=== PATIENT | female | born 1990 | race Caucasian/White ===

== ENCOUNTER 2020-03-19 06:47 | Outpatient (RCR) | payer OTHER, SELFPAY ==
[2020-03-19 07:06] LABS: COVID-19 Test Negative (Negative)
[2020-03-26 07:35] LABS: COVID-19 Test Negative (Negative)
[2020-04-01 09:31] LABS: COVID-19 Test Negative (Negative); IDNOW Serial# 55D5AD1C
[2020-04-26 13:54] LABS: SARS-COV-2 PCR UMBRL NOT DETECTED
[2020-05-05 09:42] LABS: SARS-COV-2 PCR UMBRL Not Detected
[2020-05-12 10:03] LABS: SARS-COV-2 PCR UMBRL Not Detected
[2020-05-16 12:17] LABS: SARS-COV-2 PCR UMBRL NEGATIVE
[2020-05-23 15:31] LABS: SARS-COV-2 PCR UMBRL NEGATIVE
== END 2020-03-19 06:48 | disposition home or self-care (01) ==
LOC: HO.EMPCOV 06:47
PROVIDERS: Visit Provider Internal Medicine
DX: Z20.828 Contact with and (suspected) exposure to other viral communicable diseases (principal)
CPT/HCPCS: 36415; 87635; C9803; U0003

== ENCOUNTER 2024-12-06 13:05 | Outpatient (AMB) | payer OTHER, SELFPAY ==
--- NOTE | 2024-12-06 13:07 | MHC.PC.OV ---
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 Intake Note: New patient visit Office Machinery Or Equipment Installer Required: No Allergies No Known Allergies Allergy (Verified 12/06/24 13:08) seasonal Allergy (Unknown, Uncoded 12/06/24 13:08) Unknown Medication List - Last Reconciled 12/06/24 by Lilian Renteria PA-C dextroamphetamine-amphetamine 20 mg ER (Adderall XR) 20 mg PO QAM dextroamphetamine-amphetamine 30 mg (Adderall) 30 mg PO DAILY lamotrigine (Lamictal) 300 mg PO DAILY Tobacco use date assessed: 12/06/24 Dental Screening Dental Screen Date: 12/06/24 Did you have a dental visit in the last 12 months?: No Did you have a dental problem in the last 6 months where you did not have access to dental care?: No Was dental information given to patient?: Patient has dentist 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 She tells me today that she has not seen a PCP in a very long time and does not have any acute concerns today but understands that she probably needs to get some blood work done. She says that she wants blood work done because she does feel tired but thinks that this also may just be related to her lifestyle and mental health. Pysch: anxiety, adhd and bipolar is stable with lamitical and adderall. She follows with psych at a private practice in [place]. She states the psychiatrist's name is Lupis. She follows with a therapist every other week. 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 1. Little interest or pleasure in doing things: not at all 2. Feeling down, depressed, or hopeless: not at all 3. Trouble falling or staying asleep, or sleeping too much: several days 4. Feeling tired or having little energy: not at all 5. Poor appetite or overeating: not at all 6. Feeling bad about yourself - or that you are a failure or have let yourself or your family down: not at all 7. Trouble concentrating on things, such as reading the newspaper or watching television: not at all 8. Moving or speaking so slowly that other people could have noticed. Or the opposite - being so fidgety or restless that you have been moving around a lot more than usual: several days 9. Thoughts that you would be better off or of hurting yourself in some way: not at all Total score: 2 Depression Screening Interpretation: Positive Depression Screening Follow-up: Existing condition, In treatment and Community Mental Health Worker F/U Depression Screening Done: Yes 75399 - PHQ-9 Billing: Yes Source: Developed by Drs. Rachid Jones, Soni Tapia, Manuel Wilkins and colleagues, with an educational herb from [employer]. Thrive Questionnaire Date Thrive assessed: 11/29/24 I am a: Patient What is your living situation today?: I have a steady place to live Within the past 12 months, did the food you bought not last and you didn't have the money to get more?: Never true Within the past 12 months, did you worry whether your food would run out before you got money to buy more?: Never true Do you have trouble paying for medicines?: No Do you have trouble getting transportation to medical appointments?: No Do you have trouble paying your heating and electricity bill?: No Do you have trouble taking care of your child, family member or friend?: No Do you have trouble with day-to-day activities such as bathing, preparing meals, shopping, managing finances, etc.?: No Are you currently unemployed and looking for a job?: No Are you interested in more education?: No Please select the resources that you would like help with: None Currently or been in a relationship where the following occur: No concerns reported THRIVE Score: 0 AUDIT C Alcohol Use Questionnaire (AUDIT-C) 1. How often do you have a drink containing alcohol?: 2-4 times a month 2. How many drinks containing alcohol do you have on a typical day when you are drinking?: 1 or 2 3. How often do you have six or more drinks on one occasion?: Less than monthly Total Score: 3 LAURA-7 AMB Questionnaire LAURA-7 Date LAURA - 7 assessed: 12/06/24 Feeling nervous, anxious, or on edge: 1 = Several days Not being able to stop or control worryin = Several days Worrying too much about different things: 1 = Several days Trouble relaxin = Several days Being so restless that it is hard to sit still: 1 = Several days Becoming easily annoyed or irritable: 1 = Several days Feeling afraid as if something awful might happen: 0 = Not at all Total LAURA-7 score (0-4 normal; 5-9 mild; 10-14 moderate; 15-21 severe): 6 Source: Developed by Drs. Rachid Jones, Soni Tapia, Manuel Wilkins and colleagues, with an educational herb from [employer]. LAURA-7 Assessment Billing LAURA-7 Assessment Tool: LAURA-7 Assessment 74073 Physical exam (Primary Care) Vital Signs: Last Vital Signs Temp 98.6 F 12/06/24 13:12 Pulse 96 12/06/24 13:12 Resp 14 12/06/24 13:12 BP 136/86 12/06/24 13:12 Pulse Ox 100 12/06/24 13:12 Oxygen Delivery Method Room Air 12/06/24 13:12 BMI result Body Mass Index 48.1 Tobacco/Smoking Status: Tobacco use Status Tobacco use date assessed 12/06/24 12/06/24 13:17 Patient Tobacco Use Status Never used Tobacco 12/06/24 13:23 e-Cigarette/Vaping Use Never Used 12/06/24 13:17 PHQ-9: PHQ-9 Score PHQ-9: Total score 2 12/06/24 13:32 Depression Screening Interpretation: Positive Depression Screening Follow-up: Existing condition, In treatment and Community Mental Health Worker F/U Thrive Assessment: Date of Thrive Assessment Date Thrive assessed 11/29/24 12/06/24 13:09 Currently or been in a relationship where the following occur: No concerns reported Const Orientation/consciousness: patient oriented x3 HENMT Ears: hearing grossly normal bilaterally Neck Thyroid: Thyroid normal Lymphatic: no lymphadenopathy noted Resp Auscultation: clear to auscultation bilaterally Cardio Rate: regular rate Rhythm: regular rhythm Heart sounds: S1 normal heart sound present and S2 normal heart sound present GI Inspection: Yes normal to inspection Palpation (GI): Soft to palpation and Other GI palpation findings present (nontender, no cva tenderness) Auscultation: normoactive bowel sounds Rectal Exam - Female: deferred Skin General skin exam: no rashes or lesions noted Neuro General: patient oriented x3, gait normal and no focal motor deficits Coding Level of Care Code New Pt Level 4 (77953) Complex EM visit Add On G2211 Diagnoses Bipolar disorder F31.9 ADHD (attention deficit hyperactivity disorder) F90.9 Generalized anxiety disorder F41.1 Fatigue R53.83 Additional Codes LAURA-7 Assessment Billing - LAURA-7 Assessment Tool: LAURA-7 Assessment 01219 ([id number]) PHQ-9 - 27163 - PHQ-9 Billing: Yes ([id number]) Assessment & Plan Assessment & Plan (1) Bipolar disorder: Code(s): F31.9 - Bipolar disorder, unspecified Category: Medical Plan: Stable. Following with Psychiatry (2) ADHD (attention deficit hyperactivity disorder): Code(s): F90.9 - Attention-deficit hyperactivity disorder, unspecified type Category: Medical Plan: As above (3) Generalized anxiety disorder: Code(s): F41.1 - Generalized anxiety disorder Category: Medical Plan: As above (4) Fatigue: Code(s): R53.83 - Other fatigue Plan: Labs ordered today. We will follow up pending test results. Plan Referral to gynecology. Orders: Orders Complete Blood Count Auto Diff 12/06/24 F31.9 - Bipolar disorder, unspecified, F41.1 - Generalized anxiety disorder, F90.9 - Attention-deficit hyperactivity disorder, unspecified type, R53.83 - Other fatigue Comprehensive [place]. Panel Fast 12/06/24 F31.9 - Bipolar disorder, unspecified, F41.1 - Generalized anxiety disorder, F90.9 - Attention-deficit hyperactivity disorder, unspecified type, R53.83 - Other fatigue Hemoglobin A1c 12/06/24 F31.9 - Bipolar disorder, unspecified, F41.1 - Generalized anxiety disorder, F90.9 - Attention-deficit hyperactivity disorder, unspecified type, R53.83 - Other fatigue, R73.01 - Impaired fasting glucose TSH reflex Free T4 12/06/24 F31.9 - Bipolar disorder, unspecified, F41.1 - Generalized anxiety disorder, F90.9 - Attention-deficit hyperactivity disorder, unspecified type, R53.83 - Other fatigue IRON PROFILE 12/06/24 F31.9 - Bipolar disorder, unspecified, F41.1 - Generalized anxiety disorder, F90.9 - Attention-deficit hyperactivity disorder, unspecified type Ferritin 12/06/24 F31.9 - Bipolar disorder, unspecified, F41.1 - Generalized anxiety disorder, F90.9 - Attention-deficit hyperactivity disorder, unspecified type Vitamin B12 and Folate 12/06/24 F31.9 - Bipolar disorder, unspecified, F41.1 - Generalized anxiety disorder, F90.9 - Attention-deficit hyperactivity disorder, unspecified type, R53.83 - Other fatigue Lipid Panel 12/06/24 F31.9 - Bipolar disorder, unspecified, F41.1 - Generalized anxiety disorder, F90.9 - Attention-deficit hyperactivity disorder, unspecified type, R53.83 - Other fatigue Magnesium 12/06/24 F31.9 - Bipolar disorder, unspecified, F41.1 - Generalized anxiety disorder, F90.9 - Attention-deficit hyperactivity disorder, unspecified type, R53.83 - Other fatigue Microalbumin, Random (w Creat) 12/06/24 F31.9 - Bipolar disorder, unspecified, F41.1 - Generalized anxiety disorder, F90.9 - Attention-deficit hyperactivity disorder, unspecified type, R53.83 - Other fatigue UA CC w/rflx Micro + Cult 12/06/24 F31.9 - Bipolar disorder, unspecified, F41.1 - Generalized anxiety disorder, F90.9 - Attention-deficit hyperactivity disorder, unspecified type, R53.83 - Other fatigue, Z13.220 - Encounter for screening for lipoid disorders Vitamin D 25-OH Total 12/06/24 F31.9 - Bipolar disorder, unspecified, F41.1 - Generalized anxiety disorder, F90.9 - Attention-deficit hyperactivity disorder, unspecified type, R53.83 - Other fatigue Referrals PLUMBING TECHNICIAN Referral Z01.419 - Encounter for gynecological examination (general) (routine) without abnormal findings Medications: New triamcinolone acetonide 0.025% 1 appl topical BID 80 grams 2RF 14 days
[2024-12-06 13:12] VITALS: BP 136/86; PULSE 96; RESP 14; TEMP 37; O2SAT 100; BMI 48.1
--- OUTSIDE RECORDS SUMMARY | 2024-12-06 13:17 | XMS_ITS | Clinical Summary ---
Author Organization [facility] Address [address] [phone] Phone Care Team Providers Care Antichecking Iron Worker Name Role Phone Pcp, Unknown Primary Care Provider Unavailabl e Allergies No known active allergies Medications dextroamphetami ne-amphetamine (ADDERALL XR) 20 MG 24 hr capsule TAKE 1 CAPSULE IN THE AFTERNOON 4 Active dextroamphetami ne-amphetamine (ADDERALL) 30 mg Tab tablet Take 30 mg by mouth every morning. 4 Active lamoTRIgine (LAMICTAL) 100 MG IMMEDIATE release tablet Take 3 tablets by mouth every morning. 4 Active neomycin-polymy matty B-hydrocortison e (CORTOMYCIN) 3.5-10,000-1 mg/mL-unit/mL-% otic suspension 3 drops by Each Ear route 4 (four) times a day. 10 mL 4 Active Social History Tobacco Use Types Packs/Day Years Used Date Smoking Tobacco: Never Smokeless Tobacco: Never Education Answer Date Recorded Are you interested in more education? Not on belkis e 02/22/2024 Are you concerned about learning? Not on file 02/22/2024 No 02/22/2024 No 02/22/2024 Digital Access Answer Date Recorded No 02/22/2024 No 02/22/2024 Reliable internet access at home? Not on file 02/22/2024 Device with a working camera? Not on file Comments Unknown Sex and Gender Information Value Date Recorded Sex Assigned at Not on file Legal Sex Female 12:37 PM EDT Gender Identity Not on file Sexual Orientation Not on file Last Filed Vital Signs Vital Sign Reading Time Taken Comments Blood Pressure 125/89 02/22/2024 2:14 PM EDT Pulse 97 02/22/2024 2:14 PM EDT Temperature 36.6 C (97.8 F) 02/22/2024 2:14 PM EDT Respiratory Rate 18 02/22/2024 2:14 PM EDT Oxygen Saturation 100% 02/22/2024 2:14 PM EDT Inhaled Oxygen Concentration - - Weight - - Height - - Body Mass Index - - Plan of Treatment Health Maintenance Due Date Last Done Comments Adult Td,Tdap Booster 1991 DEPRESSION SCREENING 2003 HEPATITIS C SCREENING 2009 HIV ONE-TIME SCREENING (18-6 5 YEARS) 2009 PAP SMEAR 01/29/2012 COVID-19 VACCINE (2023-2 5 season) 2024 SMOKING STATUS SCREENING (On ce After 26 Yrs) Completed 02/22/2024 HEPATITIS A VACCINES Aged Out No long er eligible based on patient's age to complete this topic HIB VACCINES Aged Out No longer eligi ble based on patient's age to complete this topic MENINGOCOCCAL VACCINES (ACWY) Aged Out No longer eligible based on patient's age to complete this topic MENINGOCOCCAL VACCINES (B) Aged Out N o longer eligible based on patient's age to complete this topic PNEUMOCOCCAL VACCINES (0-49 years) Aged Out No longer eligible based on patient's age to complete this topic Medical Devices Not on file Insurance MD [employer] MD [employer] Member Subscriber Plan / Payer (Ef fective 2019-Present) Name:Ahmet Stevens Relation to Subscriber:Self Name:Ahmet Stevens Payer ID:[id number] (NA) Type:PPO Address: [place] [phone] MD [employer] AD[employer] [facility] [employer] ADMINISTRATORS Care Teams Antichecking Iron Worker Relationship Specialty Start Date End Date Pcp, Unknown PCP - General 02/22/24 Additional Source Comments The information contained in this document represents components of the legal health record. It is not the complete legal health record.[facility]
== END 2024-12-06 13:45 | disposition home or self-care (01) ==
LOC: HO.HMCFM 13:06
PROVIDERS: PCP Physician Assistant; Visit Provider Physician Assistant
DX: F31.9 Bipolar disorder, unspecified (principal); F90.9 Attention-deficit hyperactivity disorder, unspecified type; F41.1 Generalized anxiety disorder; R53.83 Other fatigue

== ENCOUNTER → 2024-12-06 13:05 | Outpatient (BNVA) | payer OTHER, SELFPAY | PROVIDERS: PCP Physician Assistant; Visit Provider Physician Assistant | DX: F31.9 Bipolar disorder, unspecified (principal); F90.9 Attention-deficit hyperactivity disorder, unspecified type; F41.1 Generalized anxiety disorder; R53.83 Other fatigue; Z13.31 Encounter for screening for depression; Z13.39 Encounter for screening examination for other mental health and behavioral disorders | CPT/HCPCS: 96127 ==

== ENCOUNTER 2025-01-01 07:34 | Outpatient (REF) | payer OTHER, SELFPAY ==
--- OUTSIDE RECORDS SUMMARY | 2025-01-01 07:37 | XMS_ITS | Clinical Summary ---
Author Organization [facility] Address [address] [phone] Phone Care Team Providers Care Genetic Counselor Name Role Phone Pcp, Unknown Primary Care [...] topic Medical Devices Not on file Insurance [employer] B[employer]EF[employer] ADMIN[employer]RATORS Member Subscriber Plan / Payer (Ef fective 2019-Present) Name:Ahmet Stevens Relation to Subscriber:Self Name:Ahmet Stevens Payer ID:[id number] (NA) Type:PPO Address: [place] [phone] [employer] BENEFITS ADMINISTRATORS [facility] [employer] ADMINISTRATORS Care Teams Genetic Counselor Relationship Specialty Start Date End Date Pcp, Unknown PCP - General 02/22/24 Additional Source Comments The information contained in this document represents components of the legal health record. It is not the complete legal health record.[facility]
[2025-01-01 11:18] LABS: MANUAL DIFF FLAG NO
[2025-01-01 11:22] LABS: Hematocrit 37.4 % (37.0-47.0); Hemoglobin 11.6 g/dl (12.0-16.0); Imm Gran Abs Auto 0.04 X10*3/uL (0.00-0.03); Imm Gran Pct Auto 0.5 % (0.0-0.4); Lymphocytes Absolute Auto 1.7 X10*3/uL (1.2-4.9); Mean Corpuscular HGB Conc 31.0 g/dl (31.0-35.0); Mean Corpuscular Hemoglobin 25.5 pg (27.0-33.0); Mean Corpuscular Volume 82.2 fL (80.0-98.0); NRBC Abs Auto 0.000 X10*3/uL (0.0-0.012); NRBC Pct Auto 0.0 /100WBC (0.0-0.2); Platelet Count 332 X10*3/uL (160-400); Red Blood Count 4.55 X10*6/uL (4.20-5.50); White Blood Count 7.8 X10*3/uL (4.8-10.8)
[2025-01-01 11:32] LABS: Appearance Urine Turbid; Glucose Urine UA Negative (Negative); PH 5.5 (5.0-9.0); Specific Gravity - Urine 1.025 (1.005-1.025)
[2025-01-01 11:34] LABS: Hemoglobin A1C 77.5428 umol/L; Total Hemoglobin (HGBA1C) 3078.8561 umol/L
[2025-01-01 11:44] LABS: Microalbum/Creatinine Ratio Ur 13.4 ug/mg cr (<30)
[2025-01-01 11:50] LABS: Alanine Aminotransferase 15 U/L (0-31); Albumin Level 4.1 g/dL (3.5-5.0); Alkaline Phosphatase 79 U/L (39-117); Anion Gap 14 (12-20); Aspartate Amino Transferase 21 U/L (5-31); Blood Urea Nitrogen 12 mg/dL (9-16); Calcium 8.6 mg/dL (8.4-10.2); Carbon Dioxide 23 mmol/L (22-29); Chloride 109 mmol/L (96-108); Cholesterol 222 mg/dL (<200); Estimated Glomerular Filt Rate > 60; HDL Cholesterol 48 mg/dL (>40); Iron 46 mcg/dL (30-160); Magnesium 2.0 mg/dL (1.6-2.6); Percent Iron Saturation 13 % (15-50); Potassium 4.1 mmol/L (3.3-5.1); Sodium 142 mmol/L (135-145); Total Iron Binding Capacity 359 mcg/dL (228-428); Total Protein 7.3 g/dL (6.5-8.0); Triglycerides 109 mg/dL (<150); Unsaturated Iron Binding 313 ug/dL
[2025-01-01 11:54] LABS: Ferritin 12 ng/mL (10-122)
[2025-01-01 12:11] LABS: Folate 8.6 ng/mL (> or = 4.0); Vitamin B12 268 pg/mL (200-900)
== END 2025-01-01 07:35 | disposition home or self-care (01) ==
LOC: HO.10HDL 07:34
PROVIDERS: Visit Provider Physician Assistant
DX: Z13.6 Encounter for screening for cardiovascular disorders (principal); Z13.220 Encounter for screening for lipoid disorders; F31.9 Bipolar disorder, unspecified; F90.9 Attention-deficit hyperactivity disorder, unspecified type; F41.1 Generalized anxiety disorder; R53.83 Other fatigue; R73.01 Impaired fasting glucose
CPT/HCPCS: 36415; 80053; 80061; 81003; 82043; 82306; 82570; 82607; 82728; 82746; 83036; 83540; 83735; 84443; 85025